=== PATIENT | female | born 1930 | race Caucasian/White ===

== ENCOUNTER 2016-10-24 12:23 | Observation (INO) ==
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
[2016-10-24] MEDS ORDERED: Naloxone 0.4 MG/ML INJ IVP PRN (15:00)
[2016-10-24] MEDS: *HR* Metformin 500 MG TABLET PO SCH (17:08)
[2016-10-24] MEDS ORDERED: *HR* Warfarin 2 MG TABLET PO SCH (18:00)
[2016-10-24] MEDS ORDERED: *HR* HYDROcodone/Acet 5/325 mg TABLET PO PRN (18:13)
[2016-10-24] MEDS: *HR* HYDROcodone/Acet 10/325 mg TABLET PO PRN ×2 (18:22→22:35)
[2016-10-25] MEDS: *HR* Metformin 500 MG TABLET PO SCH (08:35)
[2016-10-25] MEDS ORDERED: *HR* GlipiZIDE XL (24 HR) 10 MG TABLET PO SCH (09:00)
[2016-10-25] MEDS ORDERED: Ondansetron ODT 4 MG TAB.RAPDIS SL PRN (11:39)
[2016-10-25 11:45] VITALS: BP 145/79
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
[2016-10-25 12:34] LABS: Basophils % 0.2 %; Eosinophils % 0.3 %; Hematocrit 30.7 % (35.3-44.9); Hemoglobin 10.7 g/dL (11.5-15.4); Immature Granulocytes % 0.3 % (0-4); Lymphocytes # 1.1 K/mcL (0.6-4.6); Lymphocytes % 12.5 %; Mean Corpuscular HGB Conc 34.9 g/dL (31.6-35.5); Mean Corpuscular Hemoglobin 34.6 pg (28.0-33.3); Mean Corpuscular Volume 99.4 fL (83.0-100.0); Mean Platelet Volume 9.9 fL (9.4-12.4); Monocytes # 0.8 K/mcL (0.0-1.3); Monocytes % 8.8 %; Platelet Count 218 K/mcL (140-400); Red Blood Count 3.09 M/mcL (3.82-4.97); Segmented Neutrophils % 77.9 %
[2016-10-25 12:35] LABS: Prothrombin Time 22.3 Seconds (9.4-12.1)
[2016-10-25 12:47] LABS: Alanine Aminotransferase 11 Units/L (0-55); Albumin 3.4 g/dL (3.5-5.0); Albumin/Globulin Ratio 1.3 (1.1-2.2); Alkaline Phosphatase 88 Units/L (38-126); Aspartate Amino Transferase 15 Units/L (5-34); BUN/Creatinine Ratio 15 (6-26); Bilirubin,Total 0.6 mg/dL (0.2-1.2); Blood Urea Nitrogen 14 mg/dL (7-20); Calcium 9.4 mg/dL (8.6-10.8); Carbon Dioxide 23 mEq/L (19-29); Chloride 96 mEq/L (98-109); Globulin 2.7 g/dL (2.4-3.5); Glucose 188 mg/dL (70-99); Osmolality,Calculated 279 (280-300); Potassium 4.3 mEq/L (3.5-4.5); Sodium 132 mEq/L (136-145); Total Protein 6.1 g/dL (6.0-8.3); eGFR For African Americans > 60 (> 60); eGFR For Non-African Americans 56 (> 60)
[2016-10-25 13:07] LABS: Thyroid Stimulating Hormone 1.588 mcIU/mL (0.350-4.840)
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
--- NOTE | 2016-10-25 14:39 | Physician Discharge Referral ---
ExtendedCare Referral Info Transfer To: [facility] Provider in Charge: Rico Provider in Charge after Transfer: PCP (Rico) - Diagnosis (1) Foot fracture, right Priority: Primary Status: Acute (2) DM type 2 (diabetes mellitus, type 2) Priority: Secondary Status: Acute (3) Anemia, B12 deficiency Priority: Secondary Status: Acute Prognosis: Good Aware of Diagnosis: Patient, Family Aware of Prognosis: Patient, Family - Transfer Medications Prescriptions: HYDROcodone/Acet 5/325 mg [[place] 5-325 mg] 1 tab PO Q4HR PRN #30 tab PRN Reason: Pain Acetaminophen [Tylenol] 500 mg PO Q6HR 5 Days Metoprolol XL (24 HR) Succ [Toprol XL] 12.5 mg PO DAILY 365 Days Home Medications: GlipiZIDE [Glipizide ER] 10 mg PO DAILY 10/24/16 [History] Pravastatin Sodium [Pravachol] 20 mg PO HS 10/24/16 [History] Warfarin [Coumadin] 4 mg PO 1800 10/24/16 [History] metFORMIN [Glucophage] 1,000 mg PO BIDWM 10/24/16 [History] Acetaminophen [Tylenol] 500 mg PO Q6HR 5 Days 10/25/16 [Rx] HYDROcodone/Acet 5/325 mg [[place] 5-325 mg] 1 tab PO Q4HR PRN #30 tab 10/25/16 [ Rx] Metoprolol XL (24 HR) Succ [Toprol XL] 12.5 mg PO DAILY 365 Days 10/25/16 [Rx] Allergies/Adverse Reactions: Allergies Penicillins Adverse Reaction (Verified 02/12/16 10:17) Hallucinating - Respiratory Orders Smoking Cessation: Smoking cessation has been advised. For more information, call the [place] Tobacco Quit Line at 6-073-EQIH-NOW. - Lab Orders Lab Orders: Other (include drug levels w/frequency) (Accu-Cheks before meals and at bedtime with SSI. PT/INR, CBC with differential, magnesium, BMP in 1 week) - Rehabiliation Orders Rehab Potential: Good Rehab Orders: Evaluation for Physical Therapy, Evaluation for Occupational Therapy - Diet Orders No Concentrated Sweets CERTIFICATION: I certify that the transfer of the above named patient to an Extended Care Facility is necessary for the continuing treatment of the diagnosis listed. The above information is true and accurate reflection of patient's current condition. Confidential - Redisclosure prohibited without a patient's written consent.
[2016-10-25 16:32] LABS: % Iron Saturation 13 % (15-50); Iron 46 mcg/dL (50-170); Transferrin 251 mg/dL (180-382)
[2016-10-25 16:49] LABS: Ferritin 27 ng/ml (5-204)
[2016-10-25 17:03] LABS: Folate 11.4 ng/mL (7.0-31.4)
[2016-10-25 17:05] LABS: Vitamin B12 < 109 pg/mL (213-816)
[2016-10-25 20:53] LABS: Hemoglobin A1C 6.7 %
== END 2016-10-25 16:00 ==
LOC: INPPIK 12:23 → EMEROOPIK 12:23 → INPPIK 15:43
PROVIDERS: ADMIT Emergency Medicine; ATTEND Internal Medicine